=== PATIENT | female | born 1990 | race Caucasian/White ===

== ENCOUNTER 2017-01-10 21:39 | Emergency (ER) | payer MEDICAID ==
[2017-01-11] MEDS ORDERED: METOCLOPRAMIDE HCL INJ/PF 10 MG/2 ML SDV IV ONE (02:00)
[2017-01-11] MEDS ORDERED: MORPHINE SULFATE 10 MG/ML INJ IV ONE (02:00)
[2017-01-11 02:04] LABS: ABSOLUTE BASOPHILS # (AUTO) 0.1 10^3/uL (0.0-0.2); ABSOLUTE EOSINOPHILS # (AUTO) 0.1 10^3/uL (0.0-0.6); ABSOLUTE LYMPHOCYTES (AUTO) 3.4 10^3/uL (0.5-4.7); ABSOLUTE NEUT (AUTO) 10.4 10^3/uL (1.7-8.2); BASOPHILS % (AUTO) 0.5 % (0-2); EOSINOPHILS % (AUTO) 0.6 % (0-6); HEMATOCRIT 42.5 % (36.0-47.0); HEMOGLOBIN 13.7 g/dL (12.0-15.5); HGB HCT DIFFERENCE -1.4; LYMPHOCYTES % (AUTO) 22.6 % (13-45); MEAN CORPUSCULAR HEMOGLOBIN 26.2 pg (27.0-33.4); MEAN CORPUSCULAR HGB CONC 32.1 g/dL (32.0-36.0); MEAN CORPUSCULAR VOLUME 82 fl (80-97); MONOCYTES % (AUTO) 6.9 % (3-13); RED BLOOD COUNT 5.21 10^6/uL (3.72-5.28); RED CELL DISTRIBUTION WIDTH 15.1 % (11.5-14.0); SEGMENTED NEUTROPHILS % (AUTO) 69.4 % (42-78)
[2017-01-11 02:12] LABS: ALANINE AMINOTRANSFERASE 27 U/L (9-52); ALBUMIN 4.3 g/dL (3.5-5.0); ALKALINE PHOSPHATASE 79 U/L (38-126); ANION GAP 12 (5-19); ASPARTATE AMINO TRANSFERASE 20 U/L (14-36); BILIRUBIN,DIRECT 0.3 mg/dL (0.0-0.4); BILIRUBIN,TOTAL 0.4 mg/dL (0.2-1.3); BLOOD UREA NITROGEN 13 mg/dL (7-20); CALCIUM 9.9 mg/dL (8.4-10.2); CARBON DIOXIDE 22 mmol/L (22-30); CHLORIDE 105 mmol/L (98-107); CREATININE RESULT 0.65 mg/dL (0.52-1.25); GLUCOSE 87 mg/dL (75-110); POTASSIUM 4.3 mmol/L (3.6-5.0); SODIUM 139.1 mmol/L (137-145); TOTAL PROTEIN 8.2 g/dL (6.3-8.2)
[2017-01-11 02:20] LABS: APPEARANCE,URINE CLOUDY; BILIRUBIN,URINE NEGATIVE (NEGATIVE); GLUCOSE, URINE NEGATIVE (NEGATIVE); KETONES,URINE NEGATIVE (NEGATIVE); LEUKOCYTE ESTERASE,URINE NEGATIVE (NEGATIVE); NITRITE,URINE NEGATIVE (NEGATIVE); PROTEIN,URINE NEGATIVE (NEGATIVE); URINE SPECIFIC GRAVITY 1.015; UROBILINOGEN,URINE NEGATIVE mg/dL (<2.0)
--- NOTE | 2017-01-11 03:06 | RADIOLOGY REPORT (SQ) ---
EXAM DESCRIPTION: U/S RETROPERITON (RENAL/AORTA) COMPLETED DATE/TIME: 01/11/2017 2:47 am REASON FOR STUDY: right back pain. Hx of kidney stone COMPARISON: None. TECHNIQUE: Dynamic and static grayscale images acquired of the kidneys and bladder and recorded on P ACS. Additional selected color Doppler and spectral images recorded. LIMITATIONS: None. FINDINGS: RIGHT KIDNEY: 9.4 cm. Normal size. Normal echogenicity. No solid or suspicious masses. No hydronephrosis. No calcifications. LEFT KIDNEY: 10.4 cm. Normal size. Normal echogenicity. No solid or suspicious masses. No hydroneph rosis. No calcifications. BLADDER: No masses. OTHER FINDINGS: No other significant finding. IMPRESSION: NORMAL RENAL AND BLADDER ULTRASOUND. TECHNICAL DOCUMENTATION: JOB ID: [id number] [employer]- All Rights Reserved
--- NOTE | 2017-01-11 04:19 | ER Document Report ---
ED General - General Chief Complaint: Possible Kidney Stone Stated Complaint: BACK PAIN Time Seen by Provider: 01/11/17 01:56 Notes: Patient is a 26-year-old female presents with complaint of right low back pain. She has no flank or anterior abdominal pain. No dysuria. No blood in her urine. She says this feels similar to when she had a kidney stone several months ago. She did not need any procedures to pass the stone. She passed it on her own. She has had no abnormal vaginal discharge. She did have a positive test proximal 4 weeks ago did have some vaginal bleeding at that time. She was told she was having a threatened miscarriage. Does not recheck a test since. Ultrasound at that time did not show any . TRAVEL OUTSIDE OF THE [place] IN LAST 30 DAYS: No Past Medical History - Social History Smoking Status: Unknown if Ever Smoked Frequency of alcohol use: None Drug Abuse: None Family History: Reviewed & Not Pertinent Renal/ Medical History: Reports: Hx Kidney Stones - RIGHT KIDNEY. Denies: Hx Peritoneal Dialysis Surgical Hx: Negative Review of Systems - Review of Systems Notes: My Normal Review Basic REVIEW OF SYSTEMS: CONSTITUTIONAL : Denies fever, chills, or sweats. Denies recent illness. EENT: Denies eye, ear, throat, or mouth pain or symptoms. Denies nasal or sinus congestion. CARDIOVASCULAR: Denies chest pain. RESPIRATORY: Denies cough, cold, or chest congestion. Denies shortness of breath, difficulty breathing, or wheezing. GASTROINTESTINAL: Denies abdominal pain. Denies nausea, vomiting, or diarrhea. GENITOURINARY: Denies difficulty urinating, painful urination, burning, frequency, or blood in urine. FEMALE GENITOURINARY: Denies vaginal bleeding, abnormal or irregular periods. MUSCULOSKELETAL: Right back pain. SKIN: Denies rash or skin lesions. NEUROLOGICAL: Denies altered mental status or loss of consciousness. Denies headache. Denies weakness or paralysis or loss of use of either side. Denies problems with gait or speech. Denies sensory or motor loss. ALL OTHER SYSTEMS REVIEWED AND NEGATIVE. Physical Exam - Vital signs Vitals: Temp Pulse Resp BP Pulse Ox 98.3 F 111 H 16 151/93 H 99 01/10/17 22:32 01/10/17 22:32 01/10/17 22:32 01/10/17 22:32 01/10/17 22:32 - Notes Notes: General Appearance: Well nourished, alert, cooperative, no acute distress, mild obvious discomfort. Vitals: reviewed, See vital signs table. Head: no swelling or tenderness to the head Eyes: PERRL, EOMI, Conjuctiva clear Mouth: No decreasd moisture Lungs: No wheezing, No rales, No rhonci, No accessory muscle use, good air exchange bilaterally. Heart: Normal rate, Regular rythm, No murmur, no rub Abdomen: Normal BS, soft, No rigidity, No reproducible abdominal tenderness to palpation, No guarding, no rebound, no abdominal masses, no organomegaly Back: Some pain to palpation over right lower back. Extremities: strength 5/5 in all extremities, good pulses in all extremities, no swelling or tenderness in the extremities, no edema. Skin: warm, dry, appropriate color, no rash Neuro: speech clear, oriented x 3, normal affect, responds appropriately to questions. Course - Vital Signs Vital signs: Temp Pulse Resp BP Pulse Ox 98.0 F 94 18 128/84 H 98 01/11/17 01:49 01/11/17 01:49 01/11/17 01:49 01/11/17 01:49 01/11/17 01:49 - Laboratory Result Diagrams: 01/11/17 01:42 01/11/17 01:42 Laboratory results interpreted by me: 01/11/17 01:42 WBC 15.0 H MCH 26.2 L RDW 15.1 H Plt Count 462 H Absolute Neutrophils 10.4 H - Transfer of Care Notes: Patient's urinalysis shows no blood or infection. Her renal ultrasound was negative. Her hCG level actually came back negative. Suspect she probably had a miscarriage when she was bleeding 4 weeks ago. She only has pain over the back itself. She does have a mild leukocytosis; however, I do not suspect appendicitis as she has no anterior abdominal tenderness to palpation. She looks and feels improved. I will discharge her home but I strongly encourage her to return to ER if she has recurrent, worsening pain, fevers, vomiting, or she feels unwell. Patient agrees with plan will be discharged home. Dictation of this chart was performed using voice recognition software; therefore, there may be some unintended grammatical errors. 01/11/17 04:19 Discharge - Discharge Clinical Impression: Back pain Qualifiers: Back pain location: low back pain Chronicity: acute Back pain laterality: right Sciatica presence: without sciatica Qualified Code(s): M54.5 - Low back pain Condition: Good Disposition: HOME, SELF-CARE Additional Instructions: Please return to the ER immediately if you have worsening back pain, fever,s pain with urination, blood in your urine, or any abdominal pain. Please follow up with your doctor in 2 days for close reevaluation. No heavy lifting. Forms: Return to Work
[2017-01-11 04:23] VITALS: BP 128/75
== END 2017-01-11 04:23 | disposition home or self-care (01) ==
LOC: ER 21:39
DX: M54.5 Low back pain (principal); Z87.442 Personal history of urinary calculi; D72.829 Elevated white blood cell count, unspecified; Z32.02 Encounter for pregnancy test, result negative
CPT/HCPCS: 99284; 36415; 84702; 85025; 81025; 80053; 81001; 76770; J2765; J2270

== ENCOUNTER → 2018-08-01 | Outpatient (CLI) | payer SELFPAY ==
--- NOTE | 2018-08-01 15:47 | RADIOLOGY REPORT (SQ) ---
EXAM DESCRIPTION: U/S [id number] TRNABD 1GES W/ODOP COMPLETED DATE/TIME: 08/01/2018 3:12 pm REASON FOR STUDY: ENCTR FOR SUPERVISION OF OTHER NORMAL , 1ST TRIMESTER (Z34.81) Z34.81 EN COUNTER FOR SUPRVSN OF NORMAL , FIRST TRIM COMPARISON: None. TECHNIQUE: Transvaginal and transabdominal static and realtime grayscale images acquired of the pelv is. Additional selected spectral and color Doppler images recorded. All images stored on PACs. bHCG: Not applicable. CLINICAL DATES: LMP 05/05/2018 LIMITATIONS: None. FINDINGS: FETUS: Twin Living intrauterine . ULTRASOUND EGA: 12 weeks 1 day ; 11 weeks 4 days. ULTRASOUND GENEVA: 02/12/2019 EFW: Not applicable less than 20 weeks. CRL: 5.68 cm ; 4.83 Cm FHR: 158; 171 beats per minute. SURVEY: No visualized anomalies. AMNIOTIC FLUID: Adequate amount. PLACENTA: Not yet developed due to early gestation. SUBCHORIONIC BLEED: No SIZE OF BLEED: Not applicable. UTERUS: No masses. No anomalies. CERVICAL LENGTH: 3.1 cm. Closed. RIGHT ADNEXA: Ovary not seen. No adnexal free fluid. No adnexal masses. LEFT ADNEXA: Ovary not seen. No adnexal free fluid. No adnexal masses. FREE FLUID: None. OTHER: No other significant finding. IMPRESSION: Living twin intrauterine gestation 12 weeks 1 day. Trimester of : First - 0 to 13 weeks. TECHNICAL DOCUMENTATION: JOB ID: [id number] [employer]- All Rights Reserved Reading location - IP/workstation name: [email or web address]
== END ==
LOC: RAD 14:12
PROVIDERS: ATTEND Nurse Practitioner
DX: O30.001 Twin pregnancy, unspecified number of placenta and unspecified number of amniotic sacs, first trimester (principal); Z3A.12 12 weeks gestation of pregnancy
CPT/HCPCS: 76801

== ENCOUNTER 2018-12-23 09:29 | Outpatient (CLI) | payer MEDICAID ==
--- NOTE | 2018-12-23 12:11 | Non Stress Test Report ---
Non Stress Test Datetime Report Generated by CPN: 12/23/2018 12:10 DEMOGRAPHIC EGA NST: 32.5 INDICATION Indication for Study: Ordered by Provider MONITORING Monitor Explained: Monitor Explained; Test Explained; Patient Verbalized Understanding Time on Monitor: 12/23/2018 09:48 Time off Monitor: 12/23/2018 10:52 NST Duration: 64 NST INTERVENTIONS NST Interventions: For Biophysical Profile; Other Physician Notified NST: J. Rivas, CNM BABY A: [id number] BABY A Movement : Present Contraction Frequency : none FHR Baseline : 135 Accelerations : 15X15 Decelerations : None Variability : Moderate 6-25bpm NST Review: Meets Criteria for Reactive NST NST Review and Verified By : ERNESTINE Wilkinson Results: Non-Reactive BABY B Movement: Present FHR Baseline: 140 Accelerations: 15X15 Decelerations: None Variability: Moderate 6-25bpm NST Review: Does Not Meet Criteria for Reactive NST NST Reviewed And Verified By: Génesis Shane RN NST Results: Non-Reactive NST REPORT Report Trigger: Send Report
--- NOTE | 2018-12-23 12:20 | RADIOLOGY REPORT (SQ) ---
EXAM DESCRIPTION: U/S PROFILE W/O STRESS; U/S [id number] + EACH ADDIT GEST COMPLETED DATE/TIME: 12/23/2018 11:54 am REASON FOR STUDY: BPP; TWINS BPP COMPARISON: None. TECHNIQUE: Limited zheng-scale realtime and static images of the fetus to measure specified parameter s. LIMITATIONS: None. FINDINGS: BABY A: HEART RATE: 147 beats per minute. TERRA: 9.0 cm. BREATHING MOVEMENT: 2 points. MOVEMENT: 2 points. POSTURE AND TONE: 2 points. QUALITATIVE TERRA: 2 points. BABY B: HEART RATE: 137 beats per minute. TERRA: 12.9 cm. BREATHING MOVEMENT: 2 points. MOVEMENT: 2 points. POSTURE AND TONE: 2 points. QUALITATIVE TERRA: 2 points. OTHER: Baby A vertex. Baby B breech. IMPRESSION: BIOPHYSICAL PROFILE: 03/02. Trimester of : Third - 28 weeks to delivery COMMENT: BREATHING MOVEMENTS: 2 POINTS: PRESENT 0 POINTS: ABSENT MOTION: 2 POINTS: PRESENT 0 POINTS: ABSENT TONE: 2 POINTS: PRESENT 0 POINTS: ABSENT AMNIOTIC FLUID VOLUME: 2 POINTS: LARGEST POCKET GREATER THAN 2 CM DEPTH. 0 POINTS: NO POCKET OF 2 CM. TECHNICAL DOCUMENTATION: JOB ID: [id number] [employer]- All Rights Reserved Reading location - IP/workstation name: [email or web address]
--- NOTE | 2018-12-23 12:20 | RADIOLOGY REPORT (SQ) ---
EXAM DESCRIPTION: U/S PROFILE W/O STRESS; U/S 71651 + EACH ADDIT GEST COMPLETED DATE/TIME: 12/23/2018 11:54 am REASON FOR STUDY: BPP; TWINS BPP COMPARISON: None. TECHNIQUE: Limited zheng-scale realtime and static images of the fetus to measure specified parameter s. LIMITATIONS: None. FINDINGS: BABY A: HEART RATE: 147 beats per minute. TERRA: 9.0 cm. BREATHING MOVEMENT: 2 points. MOVEMENT: 2 points. POSTURE AND TONE: 2 points. QUALITATIVE TERRA: 2 points. BABY B: HEART RATE: 137 beats per minute. TERRA: 12.9 cm. BREATHING MOVEMENT: 2 points. MOVEMENT: 2 points. POSTURE AND TONE: 2 points. QUALITATIVE TERRA: 2 points. OTHER: Baby A vertex. Baby B breech. IMPRESSION: BIOPHYSICAL PROFILE: 03/02. Trimester of : Third - 28 weeks to delivery COMMENT: BREATHING MOVEMENTS: 2 POINTS: PRESENT 0 POINTS: ABSENT MOTION: 2 POINTS: PRESENT 0 POINTS: ABSENT TONE: 2 POINTS: PRESENT 0 POINTS: ABSENT AMNIOTIC FLUID VOLUME: 2 POINTS: LARGEST POCKET GREATER THAN 2 CM DEPTH. 0 POINTS: NO POCKET OF 2 CM. TECHNICAL DOCUMENTATION: JOB ID: [id number] [employer]- All Rights Reserved Reading location - IP/workstation name: [email or web address]
== END 2018-12-23 11:59 | disposition home or self-care (01) ==
LOC: LC 09:29
PROVIDERS: ATTEND Obstetrics & Gynecology
PROC: 4A1HXCZ Monitoring of Products of Conception, Cardiac Rate, External Approach (ICD-10-PCS; principal; 2018-12-23)
DX: O30.003 Twin pregnancy, unspecified number of placenta and unspecified number of amniotic sacs, third trimester (principal); Z3A.32 32 weeks gestation of pregnancy
CPT/HCPCS: 59025; 76802; 76819

== ENCOUNTER 2019-01-14 23:31 | Outpatient (CLI) | payer MEDICAID ==
[2019-01-15 00:50] LABS: APPEARANCE,URINE SLIGHTLY-CLOUDY; BILIRUBIN,URINE NEGATIVE (NEGATIVE); COLOR,URINE YELLOW; GLUCOSE, URINE NEGATIVE (NEGATIVE); KETONES,URINE NEGATIVE (NEGATIVE); LEUKOCYTE ESTERASE,URINE NEGATIVE (NEGATIVE); NITRITE,URINE NEGATIVE (NEGATIVE); PROTEIN,URINE 30 mg/dL (NEGATIVE); URINE SPECIFIC GRAVITY 1.026; UROBILINOGEN,URINE NEGATIVE mg/dL (<2.0)
[2019-01-15 01:10] LABS: URINE AMPHETAMINES SCREEN NEGATIVE; URINE BARBITURATES SCREEN NEGATIVE; URINE BENZODIAZEPINES SCREEN NEGATIVE; URINE COCAINE SCREEN NEGATIVE; URINE MARIJUANA (THC) SCREEN NEGATIVE; URINE METHADONE SCREEN NEGATIVE; URINE PHENCYCLIDINE SCREEN NEGATIVE
--- NOTE | 2019-01-15 01:59 | Non Stress Test Report ---
Non Stress Test Datetime Report Generated by CPN: 01/15/2019 01:59 DEMOGRAPHIC EGA NST: 36.0 INDICATION Indication for Study: Multiple Gestation; Ordered by Provider MONITORING Monitor Explained: Monitor Explained; Test Explained; Patient Verbalized Understanding Time on Monitor: 01/15/2019 00:08 Time off Monitor: 01/15/2019 01:50 NST Duration: 102 NST INTERVENTIONS NST Interventions: PO Hydration Physician Notified NST: Dr. Anthony BABY A: [id number] BABY A Movement : Present Contraction Frequency : Occasional FHR Baseline : 145 Accelerations : 15X15 Decelerations : None Variability : Moderate 6-25bpm NST Review: Meets Criteria for Reactive NST NST Review and Verified By : Mejia Valdez RN NST Results: Reactive BABY B Movement: Present FHR Baseline: 140 Accelerations: 15X15 Decelerations: None Variability: Moderate 6-25bpm NST Review: Meets Criteria for Reactive NST NST Reviewed And Verified By: KDereje José Miguel, RN NST Results: Reactive NST REPORT Report Trigger: Send Report
== END 2019-01-15 01:57 | disposition home or self-care (01) ==
LOC: LC 23:31
PROVIDERS: ATTEND Obstetrics & Gynecology
PROC: 4A1HXCZ Monitoring of Products of Conception, Cardiac Rate, External Approach (ICD-10-PCS; principal; 2019-01-14)
DX: O36.8130 Decreased fetal movements, third trimester, not applicable or unspecified (principal); O47.03 False labor before 37 completed weeks of gestation, third trimester; Z3A.36 36 weeks gestation of pregnancy
CPT/HCPCS: 59025; 80307; 81001; 94760

== ENCOUNTER 2019-01-16 06:29 | Inpatient (IN) | payer MEDICAID ==
[2019-01-13 11:25] LABS: ABSOLUTE LYMPHOCYTES (AUTO) 1.6 10^3/uL (0.5-4.7); ABSOLUTE MONOCYTES (AUTO) 0.8 10^3/uL (0.1-1.4); BASOPHILS % (AUTO) 0.2 % (0-2); EOSINOPHILS % (AUTO) 0.3 % (0-6); HEMATOCRIT 32.6 % (36.0-47.0); HEMOGLOBIN 10.7 g/dL (12.0-15.5); LYMPHOCYTES % (AUTO) 19.1 % (13-45); MEAN CORPUSCULAR HGB CONC 32.7 g/dL (32.0-36.0); MEAN CORPUSCULAR VOLUME 73 fl (80-97); MONOCYTES % (AUTO) 9.7 % (3-13); PLATELET COUNT 307 10^3/uL (150-450); RED BLOOD COUNT 4.45 10^6/uL (3.72-5.28); SEGMENTED NEUTROPHILS % (AUTO) 70.7 % (42-78); TOTAL CELLS COUNTED % (AUTO) 100 %; WHITE BLOOD COUNT 8.5 10^3/uL (4.0-10.5)
[2019-01-13 11:33] LABS: APPEARANCE,URINE SLIGHTLY-CLOUDY; BILIRUBIN,URINE NEGATIVE (NEGATIVE); COLOR,URINE YELLOW; GLUCOSE, URINE NEGATIVE (NEGATIVE); KETONES,URINE NEGATIVE (NEGATIVE); LEUKOCYTE ESTERASE,URINE NEGATIVE (NEGATIVE); NITRITE,URINE NEGATIVE (NEGATIVE); PROTEIN,URINE NEGATIVE (NEGATIVE); URINE SPECIFIC GRAVITY 1.018; UROBILINOGEN,URINE NEGATIVE mg/dL (<2.0)
[2019-01-13 11:57] LABS: URINE AMPHETAMINES SCREEN NEGATIVE; URINE BARBITURATES SCREEN NEGATIVE; URINE BENZODIAZEPINES SCREEN NEGATIVE; URINE COCAINE SCREEN NEGATIVE; URINE MARIJUANA (THC) SCREEN NEGATIVE; URINE METHADONE SCREEN NEGATIVE; URINE PHENCYCLIDINE SCREEN NEGATIVE
[~2019-01-16 06:29] MED LIST: CEFAZOLIN 2 GM/D5W RTU 2 GM/50 ML RTUPB IV PRN; LACTATED RINGERS 1000 ML IV PRN; LIDOCAINE 0.5% INJ-PF (5 MG/ML) 50 ML SDV SUBCUT PRN; RINGERS SOLUTION,LACTATED 1,500 ML IV PRN
[2019-01-16] MEDS ORDERED: OXYTOCIN 10 UNIT/ML VIAL ONE (09:10)
[2019-01-16] MEDS ORDERED: OXYTOCIN/NORMAL SALINE 20 UNIT/1,000 ML RTUINJ ONE ×2 (09:10→10:44)
[2019-01-16] MEDS ORDERED: EPHEDRINE SULFATE INJ 50 MG/1 ML AMPULE ONE (09:10)
[2019-01-16] MEDS ORDERED: MIDAZOLAM 2 MG/2 ML INJ ONE (09:10)
[2019-01-16] MEDS ORDERED: ONDANSETRON HCL INJ/PF 4 MG/2 ML SDV ONE (09:10)
[2019-01-16] MEDS ORDERED: FENTANYL CITRATE INJ/PF 100 MCG/2 ML AMPUL ONE (09:10)
[2019-01-16] MEDS ORDERED: KETOROLAC TROMETHAMINE INJ/PF 30 MG/1 ML SDV ONE (09:10)
[2019-01-16] MEDS ORDERED: ACETAMINOPHEN 1,000 MG/100 ML RTUPB IV ONE (09:10)
[2019-01-16] MEDS ORDERED: METHYLERGONOVINE MALEATE INJ/PF 0.2 MG/1 ML AMPULE ONE (10:02)
[2019-01-16] MEDS ORDERED: PROMETHAZINE HCL INJ 25 MG/1 ML VIAL IV PRN ×3 (10:09→11:01)
[2019-01-16] MEDS ORDERED: FENTANYL CITRATE INJ/PF 100 MCG/2 ML AMPUL IV PRN ×3 (10:09)
[2019-01-16] MEDS ORDERED: ONDANSETRON HCL INJ/PF 4 MG/2 ML SDV IV PRN (10:09)
[2019-01-16] MEDS ORDERED: MEPERIDINE HCL/PF INJ 25 MG/1 ML DISP.SYRIN IV PRN (10:09)
[2019-01-16] MEDS ORDERED: OXYCODONE-ACETAMINOPHEN 5-325 MG TABLET PO PRN ×3 (10:09→11:01)
[2019-01-16] MEDS ORDERED: DIPHENHYDRAMINE HCL 50 MG/ML VIAL IV PRN (10:09)
--- NOTE | 2019-01-16 10:49 | PDOC DELIVERY SUMMARY ---
Delivery Summary - Maternal Hx : II Hx Para: 0 Hx # Term Pregnancies: 0 Hx Total # of Abortions (Sponateous & Elective): 1 GENEVA: 02/12/19 Gestational Age: 36.1 Ruptured Membranes: AROM Time of Rupture: 09:55 Fluids: Clear - Delivery Presentation: Vertex Heart Rate Monitoring: Done Pre-Operatively Support Person Present: Yes Location: OR : Scheduled, Primary Placenta: Within Normal Limits Number of Vessels (Cord): 3 Nuchal Cord: No Delivery of Placenta Date: 01/16/19 Delivery of Placenta Time: 10:00 Estimated Blood Loss: 600 ml Delivery Quantitative Blood Loss (QBL): 510 - Medications Type of Anesthesia:: Spinal - Infant Assess and Care Baby 1 Female Delivery of Date: 01/16/19 Delivery of Time: 09:57 Preprinted Number On Band: [id number] Skin to Skin: Yes Skin to Skin (Mins): 5 To Nursery At: 10:13 Mode of Transport: Bassinet Baby 2 Male Delivery of Infant Date: 01/16/19 Delivery of Infant Time: 09:58 Preprinted Number On Band: [id number] Infant Skin to Skin: Yes Skin to Skin (Mins): 5 To Nursery At: 10:13 Mode of Transport: Bassinet - Delivery Personnel Transplant Nurse Practitioner: CESAR VIGIL RN: NITIN MILLER MD: DARBY GONZALES
[2019-01-16] MEDS ORDERED: RINGERS SOLUTION,LACTATED 1,000 ML IV PRN (11:01)
[2019-01-16] MEDS ORDERED: ACETAMINOPHEN 325 MG TABLET PO PRN (11:01)
[2019-01-16] MEDS ORDERED: OXYTOCIN/NORMAL SALINE 20 UNIT/1,000 ML RTUINJ IV PRN (11:01)
[2019-01-16] MEDS ORDERED: SIMETHICONE 80 MG TAB.CHEW PO PRN (11:01)
[2019-01-16] MEDS ORDERED: HYDROMORPHONE HCL INJ/PF 2 MG/ML AMPULE IV PRN (11:01)
--- NOTE | 2019-01-16 11:01 | Operative Report ---
Operative Report DATE OF SURGERY: 01/16/19 PREOPERATIVE DIAGNOSIS: 1. Intrauterine at 36-1/7 weeks. 2. Suspec alexey anomaly of twin B. 3. Polyhydramnios (twin B). 4. GBS negative. 5. Rh+. 6. rubella immune. 7. Anemia POSTOPERATIVE DIAGNOSIS: same OPERATION: Primary low transverse section SURGEON: DARBY HERRING ANESTHESIA: Spinal COMPLICATIONS: None ESTIMATED BLOOD LOSS: 600 ml INTRAOPERATIVE FINDINGS: Twin A: Viable female delivered at 0957 with a cephalic presentation; twin B: Viable male delivered at 0958 with a leonarda breech presentation; normal uterus, bilateral tubes and ovaries PROCEDURE: The patient was taken to the operating room where spinal anesthesia was obtained and found to be adequate. She was then prepped and draped in the normal sterile fashion and placed in the dorsal supine position with a leftward tilt. A Pfannenstiel skin incision was then made and carried through to the underlying layers of the fascia with the scalpel. The fascia was incised in the midline and the incision extended laterally with the Calabrese scissors. The superior aspect of the fascial incision was then grasped with Jairo clamps elevated and the underlying rectus muscles dissected off both bluntly and sharply. Attention was then turned to the inferior aspect of the fascial incision which in a similar fashion was grasped, tented up with Jairo clamps, and the rectus muscles dissected off both bluntly and sharply. The rectus muscles were then in the midline and the peritoneum was identified and entered both sharply and bluntly. The peritoneal incision was then extended superiorly and inferiorly with good visualization of the bladder. The bladder blade was inserted and the vesicouterine peritoneum identified grasped with Latvian pickups and entered sharply with the Metzenbaum scissors. This incision was then extended laterally with the Metzenbaum scissors and a bladder flap created digitally. The bladder blade was then reinserted and the lower uterine segment incised in a transverse fashion with the scalpel. The uterine incision was then extended bluntly and with the bandage scissors. The bladder blade was removed and A's head was delivered from cephalic presentation, atraumatically. The nose and mouth were suctioned and the cord doubly clamped and cut. The infant was handed off to waiting pediatricians. Next, B's amniotic sac was ruptured, which was polyhydramnios, the infant was in a leonarda breech position. The lower extremities were delivered, following the body and head, all atraumatically. The cord was clamped and cut. The infant was nose mouth were suctioned and the was handed off to the awaiting human resource analyst The placenta was then delivered manually and the uterus was not exteriorized. It was cleared of all clots and debris. The uterine incision was then repaired with 0 Vicryl in a running locked fashion. 0-Chromic was used to obtain hemostasis via imbrication of the initial layer. The bladder flap was then repaired with 3-0 Vicryl in a running fashion. Interceed was placed overlying the uterine incision, as well as a piece placed vertically on the anterior surface of the uterus, to prevent adhesions. The gutters were cleared of all clots and debris. All operative sites were noted to be hemostatic. The fascia was reapproximated with 0 Vicryl in a running fashion from each lateral edge to the midline. The subcutaneous fat layer was then closed in an interrupted fashion with 3-0 vicryl. The skin was closed with 4-0 Monocryl in a running, subcuticular fashion. The patient tolerated the procedure well. Sponge, lap, needle and instrument counts are correct x 2. 2 g of Ancef were given prior to skin incision. The patient was taken to the recovery area awake and in stable condition.
[2019-01-16] MEDS: FENTANYL CITRATE INJ/PF 100 MCG/2 ML AMPUL ONE ×2 (12:05→12:10)
[2019-01-16] MEDS: OXYCODONE-ACETAMINOPHEN 5-325 MG TABLET PO PRN ×2 (13:26→22:11)
[2019-01-16] MEDS: KETOROLAC TROMETHAMINE INJ/PF 30 MG/1 ML SDV IV SCH (17:36)
[2019-01-16] MEDS: DOCUSATE SODIUM 100 MG CAPSULE PO SCH (17:36)
[2019-01-17] MEDS: KETOROLAC TROMETHAMINE INJ/PF 30 MG/1 ML SDV IV SCH (02:36)
[2019-01-17 05:42] LABS: HEMATOCRIT 24.3 % (36.0-47.0); MEAN CORPUSCULAR HEMOGLOBIN 24.1 pg (27.0-33.4); MEAN CORPUSCULAR HGB CONC 32.4 g/dL (32.0-36.0); MEAN CORPUSCULAR VOLUME 74 fl (80-97); PLATELET COUNT 214 10^3/uL (150-450); RED BLOOD COUNT 3.27 10^6/uL (3.72-5.28); WHITE BLOOD COUNT 9.4 10^3/uL (4.0-10.5)
[2019-01-17 05:46] LABS: HEMOGLOBIN 7.9 g/dL (12.0-15.5)
[2019-01-17] MEDS ORDERED: IRON SUCROSE COMPLEX INJ/PF 100 MG/5 ML SDV IV ONE (09:00)
[2019-01-17] MEDS: DOCUSATE SODIUM 100 MG CAPSULE PO SCH ×2 (09:26→17:36)
[2019-01-17] MEDS: PRENATAL VITAMIN W DHA CAPSULE PO SCH (09:26)
[2019-01-17] MEDS: OXYCODONE-ACETAMINOPHEN 5-325 MG TABLET PO PRN ×2 (09:35→17:36)
--- NOTE | 2019-01-17 11:04 | PDOC PROGRESS REPORT ---
Subjective-OB Progress Note for:: 01/17/19 Subjective: 28yo G2 now P1L2 s/p primary ppd1. Pt. ambulating and voiding without difficulty. Just had venofer infusion, denies sob/lightheadedness or other concerns. Baby boy at [facility] awaiting surgery, baby girl in room with patient and doing well. No concerns at this time. Physical Exam (OB) Vital Signs: Temp Pulse Resp BP Pulse Ox 98.2 F 86 16 122/82 97 01/17/19 07:56 01/17/19 07:56 01/17/19 07:56 01/17/19 07:56 01/17/19 07:56 Intake & Output 01/16/19 01/17/19 01/18/19 06:59 06:59 06:59 Intake Total 5670 Output Total 3559 Balance 2111 - General General Appearance: Appears well In distress: None - PIH/Pre-Eclampsia Headache: Absent Epigastric Pain: No Visual Changes: No - Dressing Removed: No - opsite Incision: Well Approximated - Lochia Lochia Amount: Scant < 10 ml Lochia Color: Rubra/Red - Abdomen Description: Soft Hernia Present: No Fundal Description: Firm, Midline Fundal Height: u/u - u/2 - Respiratory Respiratory Status: No respiratory distress - Extremities Upper extremity: Normal inspection Lower extremities: Edema - Neurological Cognition: Normal Orientation: AAOx4 - Psychological Associated symptoms: Normal affect, Normal mood Objective-Diagnostic Laboratory: 01/17/19 05:26 01/17/19 05:26 WBC 9.4 RBC 3.27 L Hgb 7.9 L Hct 24.3 L MCV 74 L MCH 24.1 L MCHC 32.4 RDW 17.0 H Plt Count 214 Assessment and Plan(PN) - Assessment and Plan (1) Twin delivered Is this a current diagnosis for this admission?: Yes Plan: Routine pp care (2) Acute blood loss anemia Is this a current diagnosis for this admission?: Yes Plan: Continue to monitor for s/s of decompensation, increase dietary iron and FeSO4 BID. Will obtain h/h again prior to discharge (3) delivery delivered Is this a current diagnosis for this admission?: Yes Plan: Routine pp care. - Time Spent with Patient Time with patient: Less than 15 minutes - Disposition Anticipated Discharge: Home Within: within 24 hours
[2019-01-17] MEDS: IBUPROFEN 800 MG TABLET PO SCH ×2 (11:48→17:36)
[2019-01-18] MEDS: IBUPROFEN 800 MG TABLET PO SCH ×4 (00:13→17:08)
[2019-01-18] MEDS: OXYCODONE-ACETAMINOPHEN 5-325 MG TABLET PO PRN ×4 (00:13→17:08)
[2019-01-18] MEDS: DOCUSATE SODIUM 100 MG CAPSULE PO SCH ×2 (09:45→17:09)
[2019-01-18] MEDS: PRENATAL VITAMIN W DHA CAPSULE PO SCH (09:45)
--- NOTE | 2019-01-18 10:20 | PDOC PROGRESS REPORT ---
Subjective-OB Progress Note for:: 01/18/19 - POD #2, doing well, pumping, O negative. C/s due to twins, baby boy has a TEF and has been transferred to another facility. Physical Exam (OB) Vital Signs: Temp Pulse Resp BP Pulse Ox 98.5 F 88 16 127/71 H 99 01/18/19 08:14 01/18/19 08:14 01/18/19 08:14 01/18/19 08:14 01/18/19 08:14 Intake & Output 01/17/19 01/18/19 01/19/19 06:59 06:59 06:59 Intake Total 5670 2150 Output Total 3559 Balance 2110 2150 - General General Appearance: Appears well, Alert In distress: None - PIH/Pre-Eclampsia DTR's: 1 + Clonus: Negative Headache: Absent Epigastric Pain: No Visual Changes: No - Dressing Removed: No Incision: Dressing Closure Type: op site - Lochia Lochia Amount: Scant < 10 ml Lochia Color: Rubra/Red - Abdomen Description: Soft, Round Hernia Present: No Fundal Description: Firm, Midline Fundal Height: u/u - u/2 - Respiratory Respiratory Status: No respiratory distress - Abdominal Distension: No distension Tenderness: Nontender - Genitourinary Genitourinary Note: voiding - Extremities Upper extremity: Normal inspection Lower extremities: Edema - 1+ - Neurological Cognition: Normal Orientation: AAOx4 - Psychological Associated symptoms: Normal affect, Normal mood - Skin Skin Temperature: Warm Skin Moisture: Dry Objective-Diagnostic Laboratory: 01/17/19 05:26 Assessment and Plan(PN) - Assessment and Plan (1) Acute blood loss anemia Is this a current diagnosis for this admission?: Yes (2) delivery delivered Is this a current diagnosis for this admission?: Yes (3) Twin delivered Is this a current diagnosis for this admission?: Yes - Time Spent with Patient Time with patient: Less than 15 minutes Medications reviewed and adjusted accordingly: Yes - Disposition Anticipated Discharge: Home Within: within 24 hours
[2019-01-18] MEDS: FERROUS SULFATE 325 MG TABLET PO SCH (12:08)
[2019-01-19] MEDS: IBUPROFEN 800 MG TABLET PO SCH ×3 (00:16→14:49)
[2019-01-19] MEDS: OXYCODONE-ACETAMINOPHEN 5-325 MG TABLET PO PRN (00:36)
[2019-01-19 08:10] VITALS: BP 124/70
--- NOTE | 2019-01-19 08:57 | PDOC PROGRESS REPORT ---
Subjective-OB Progress Note for:: 01/19/19 Subjective: Ready for discharge. Anxious to see twin transferred to [place]. Physical Exam (OB) Vital Signs: Temp Pulse Resp BP Pulse Ox 98 F 84 18 124/70 100 01/19/19 08:05 01/19/19 08:05 01/19/19 08:05 01/19/19 08:05 01/19/19 08:05 Intake & Output 01/18/19 01/19/19 01/20/19 06:59 06:59 06:59 Intake Total 2150 750 Balance 2150 750 - PIH/Pre-Eclampsia DTR's: 1 + Clonus: Negative Headache: Absent Epigastric Pain: No Visual Changes: No - Dressing Removed: No - ptsite sith scant old shadow drainage on right side Incision: Dressing Closure Type: op site - Lochia Lochia Amount: Scant < 10 ml Lochia Color: Serosa/Brown - Abdomen Description: Soft, Round Hernia Present: No Bowel Sounds: Normoactive Flatus Presence: Present Stool: No Fundal Description: Firm, Midline Fundal Height: u/u - u/2 Objective-Diagnostic Laboratory: 01/17/19 05:26 Assessment and Plan(PN) - Time Spent with Patient Medications reviewed and adjusted accordingly: Yes - Disposition Anticipated Discharge: Home
--- NOTE | 2019-01-19 09:08 | PDOC DISCHARGE SUMMARY ---
Final Diagnosis Discharge Date: 01/19/19 Discharge Data - Discharge Medication Prescriptions: Oxycodone HCl/Acetaminophen [Percocet 5-325 mg Tablet] 1 tab PO Q4HP PRN #20 tablet PRN Reason: Ferrous Sulfate [Feosol 325 mg Tablet] 325 mg PO BID #60 tablet Ibuprofen [Motrin 800 mg Tablet] 800 mg PO Q6 #30 tablet Home Medications: Vits96/Iron Fum/Folic [ Tablet] 1 tab PO DAILY 12/23/18 Ferrous Sulfate [Feosol 325 mg Tablet] 325 mg PO BID #60 tablet 01/19/19 Ibuprofen [Motrin 800 mg Tablet] 800 mg PO Q6 #30 tablet 01/19/19 Oxycodone HCl/Acetaminophen [Percocet 5-325 mg Tablet] 1 tab PO Q4HP PRN #20 tablet 01/19/19 Gestational Age: 36.1 wks Reason(s) for Admission: Ceasarean Section-Primary Procedures: Ultrasound Intrapartum Procedure(s): : Low Cervical, Transverse - Data Baby 1 Female at 1 minute: 7 at 5 minutes: 9 Weight: 2410 kg Baby 2 Male at 1 minute: 6 at 5 minutes: 7 Weight: 1.729 kg Home with Mother: Yes Complications: Yes - Twin B transferred after - Diagnosis Test Laboratory: Temp Pulse Resp BP Pulse Ox 98 F 84 18 124/70 100 01/19/19 08:05 01/19/19 08:05 01/19/19 08:05 01/19/19 08:05 01/19/19 08:05 01/13/19 01/13/19 01/17/19 10:53 10:58 05:26 RBC 4.45 3.27 L Hgb 10.7 L 7.9 L Hct 32.6 L 24.3 L Urine Opiates Screen NEGATIVE - Discharge information/Instructions Discharge Activity: Activity As Tolerated, Balance Activity w/Rest, No Lifting Over 10 Pounds, No Lifting/Push/Pulling, Pelvic Rest, Slowly Increase Activity, No tub bath Discharge Diet: Regular Disposition: HOME, SELF-CARE Follow up with: [facility] in: 1, Weeks
[2019-01-19] MEDS: PRENATAL VITAMIN W DHA CAPSULE PO SCH (09:19)
[2019-01-19] MEDS: DOCUSATE SODIUM 100 MG CAPSULE PO SCH (09:19)
[2019-01-19] MEDS: FERROUS SULFATE 325 MG TABLET PO SCH (09:19)
[2019-01-19] MEDS ORDERED: DIPH/PERTUSS(ACELL)/TETANUS VAC/PF 0.5 ML SYR (>=10YO) IM PRN (13:30)
== END 2019-01-19 15:10 | disposition home or self-care (01) | DRG 787 ==
LOC: 2S 06:29
PROVIDERS: ADMIT Obstetrics & Gynecology; ATTEND Obstetrics & Gynecology
PROC: 10D00Z1 Extraction of Products of Conception, Low, Open Approach (ICD-10-PCS; principal; 2019-01-16 09:45)
DX: O30.043 Twin pregnancy, dichorionic/diamniotic, third trimester (principal); D62 Acute posthemorrhagic anemia; O35.9XX2 Maternal care for (suspected) fetal abnormality and damage, unspecified, fetus 2; O31.8X32 Other complications specific to multiple gestation, third trimester, fetus 2; O32.1XX2 Maternal care for breech presentation, fetus 2; O40.3XX2 Polyhydramnios, third trimester, fetus 2; O99.214 Obesity complicating childbirth; O99.02 Anemia complicating childbirth; Z3A.36 36 weeks gestation of pregnancy; Z37.2 Twins, both liveborn
CPT/HCPCS: 1961; 36415; 59025; 80307; 81001; 85025; 85027; 86850; 86900; 86901; 88307; 90715; 94799; C1765; J0131; J0690; J1756; J1885; J2210; J2250; J2405; J2590; J3010; J3490

== ENCOUNTER → 2020-02-20 | Outpatient (CLI) | payer MEDICAID ==
--- NOTE | 2020-02-20 15:34 | RADIOLOGY REPORT (SQ) ---
EXAM DESCRIPTION: U/S [id number] TRNABD 1GES W/ODOP IMAGES COMPLETED DATE/TIME: 02/20/2020 3:18 pm REASON FOR STUDY: Z34.81 ENCOUNTER FOR SUPRVSN OF NORMAL , FIRST TRIMESTER Z34.81 ENCOUNTE R FOR SUPRVSN OF NORMAL , FIRST TRIM COMPARISON: None. TECHNIQUE: Transabdominal static and realtime grayscale images acquired of the pelvis. Additional se lected spectral and color Doppler images recorded. All images stored on PACs. bHCG: Unknown CLINICAL DATES: LMP 12/01/2019 11 weeks 4 days LIMITATIONS: None. FINDINGS: FETUS: Single Living intrauterine . ULTRASOUND EGA: 13 weeks 0 days ULTRASOUND GENEVA: 08/27/2020 EFW: Not applicable less than 20 weeks. CRL: 6.9 cm. FHR: 163 beats per minute. SURVEY: Too early to assess. AMNIOTIC FLUID: Adequate amount. PLACENTA: Not yet developed due to early gestation. SUBCHORIONIC BLEED: And I will SIZE OF BLEED: Not applicable. UTERUS: No masses. No anomalies. CERVICAL LENGTH: 3.4 cm. Closed. RIGHT ADNEXA: Normal ovary with normal vascular flow. No adnexal free fluid. No adnexal masses. LEFT ADNEXA: Normal ovary with normal vascular flow. No adnexal free fluid. No adnexal masses. FREE FLUID: None. OTHER: No other significant finding. IMPRESSION: LIVING INTRAUTERINE . EGA 13 weeks 0 days Trimester of : First trimester - 0 to 13 weeks. TECHNICAL DOCUMENTATION: JOB ID: [id number] 2010 [employer]- All Rights Reserved rev Reading location - IP/workstation name: [email or web address]
== END ==
LOC: RAD 14:51
PROVIDERS: ATTEND Midwife
DX: Z34.81 Encounter for supervision of other normal pregnancy, first trimester (principal)
CPT/HCPCS: 76801

== ENCOUNTER 2020-08-06 11:43 | Outpatient (CLI) | payer MEDICAID ==
--- NOTE | 2020-08-06 12:16 | L&D Progress Notes ---
PROGRESS NOTES Datetime Report Generated by CPN: 08/06/2020 12:16 PROGRESS NOTE Comment: NST reactive, discharge home, F/U in office Thursday SIGNATURE SIGNATURE: [id number] Assignment: Sophie Browning MD Signature: with User ID: [email or web address] : with User ID: [email or web address]
--- NOTE | 2020-08-06 12:51 | Non Stress Test Report ---
Non Stress Test Datetime Report Generated by CPN: 08/06/2020 12:50 DEMOGRAPHIC Test Number: 1 Test Number: 1 EGA NST: 35.4 INDICATION Indication for Study (NST) Other: repeat NST nonreactive in office VITAL SIGNS Temperature - NST: 97.3 Pulse - NST: 105 RESP - NST: 18 NBPSYS NST: 105 NBPDIA NST: 69 MONITORING Monitor Explained: Monitor Explained; Patient Verbalized Understanding Time on Monitor: 08/06/2020 11:53 Time off Monitor: 08/06/2020 12:19 NST Duration: 26 NST INTERVENTIONS NST Interventions: PO Hydration; Reposition Patient BABY A: [id number] BABY A Movement : Present Contraction Frequency : 0 FHR Baseline : 145 Accelerations : 15X15 Decelerations : None Variability : Moderate 6-25bpm NST Review: Meets Criteria for Reactive NST NST Review and Verified By : Campos NST Results: Reactive NST REPORT Report Trigger: Send Report
== END 2020-08-06 12:21 | disposition home or self-care (01) ==
LOC: LC 11:43
PROVIDERS: ATTEND Obstetrics & Gynecology
DX: Z34.93 Encounter for supervision of normal pregnancy, unspecified, third trimester (principal)
CPT/HCPCS: 59025

== ENCOUNTER 2020-08-08 10:43 | Inpatient (IN) | payer MEDICAID ==
[2020-08-21] MEDS ORDERED: CEFAZOLIN 1 GM/D5W RTU 1 GM/50 ML RTUPB IV PRN (05:00)
[2020-08-21] MEDS ORDERED: RINGERS SOLUTION,LACTATED 1,000 ML IV ONE (08:00)
[2020-08-21 08:15] LABS: ABSOLUTE LYMPHOCYTES (AUTO) 1.6 10^3/uL (0.5-4.7); ABSOLUTE MONOCYTES (AUTO) 0.6 10^3/uL (0.1-1.4); ABSOLUTE NEUT (AUTO) 6.8 10^3/uL (1.7-8.2); BASOPHILS % (AUTO) 0.3 % (0-2); EOSINOPHILS % (AUTO) 0.3 % (0-6); HEMATOCRIT 35.2 % (36.0-47.0); HEMOGLOBIN 11.6 g/dL (12.0-15.5); LYMPHOCYTES % (AUTO) 17.3 % (13-45); MEAN CORPUSCULAR HGB CONC 33.1 g/dL (32.0-36.0); MEAN CORPUSCULAR VOLUME 82 fl (80-97); MONOCYTES % (AUTO) 6.7 % (3-13); PLATELET COUNT 278 10^3/uL (150-450); RED BLOOD COUNT 4.31 10^6/uL (3.72-5.28); RED CELL DISTRIBUTION WIDTH 18.9 % (11.5-14.0); SEGMENTED NEUTROPHILS % (AUTO) 75.4 % (42-78); TOTAL CELLS COUNTED % (AUTO) 100 %
[2020-08-21] MEDS: RINGERS SOLUTION,LACTATED 1,000 ML IV PRN ×2 (09:08→14:22)
[2020-08-21 09:15] LABS: URINE AMPHETAMINES SCREEN NEGATIVE; URINE BARBITURATES SCREEN NEGATIVE; URINE BENZODIAZEPINES SCREEN NEGATIVE; URINE COCAINE SCREEN NEGATIVE; URINE MARIJUANA (THC) SCREEN NEGATIVE; URINE METHADONE SCREEN NEGATIVE; URINE PHENCYCLIDINE SCREEN NEGATIVE
[2020-08-21] MEDS ORDERED: OXYTOCIN 10 UNIT/ML VIAL ONE (09:55)
[2020-08-21] MEDS ORDERED: OXYTOCIN/0.9 % SODIUM CHLORIDE 30 UNIT/500 ML RTUINJ ONE (09:55)
[2020-08-21] MEDS ORDERED: ACETAMINOPHEN 1,000 MG/100 ML RTUPB IV ONE (09:56)
[2020-08-21 10:35] LABS: APPEARANCE,URINE TURBID; BILIRUBIN,URINE NEGATIVE (NEGATIVE); GLUCOSE, URINE NEGATIVE (NEGATIVE); KETONES,URINE TRACE mg/dL (NEGATIVE); LEUKOCYTE ESTERASE,URINE MODERATE (NEGATIVE); NITRITE,URINE NEGATIVE (NEGATIVE); PROTEIN,URINE 30 mg/dL (NEGATIVE); URINE SPECIFIC GRAVITY 1.027; UROBILINOGEN,URINE NEGATIVE mg/dL (<2.0)
[2020-08-21 10:38] LABS: COLOR,URINE YELLOW
[2020-08-21] MEDS ORDERED: CITRIC ACID/SODIUM CITRATE ORAL SOLN 15 ML UDCUP ONE (10:39)
--- NOTE | 2020-08-21 10:46 | PDOC H&P ---
History of Present Illness Admission Date/PCP: 08/21/20 06:43 JOSEFINA ERDDY MD Patient complains of: Scheduled Repeat History of Present Illness: HECTOR SERRANO is a 30 year old female, at 39+ weeks EGA for repeat section. She reports feeling good today. Good movement, no loss of fluid or vaginal bleeding. No regular contractions. Prior CS x1 for twins Baby A breech) . History one SAB Declines TOLAC Past Medical History Cardiac Medical History: Denies: Hypertension Past Surgical History Past Surgical History: Reports: Section Social History Smoking Status: Never Smoker Family History Family History: Reviewed & Not Pertinent Parental Family History Reviewed: Yes Children Family History Reviewed: Yes Sibling(s) Family History Reviewed.: Yes Medication/Allergy Home Medications: Ascorbic Acid [Vitamin C] 1,000 mg PO DAILY 08/06/20 Ferrous Sulfate [Ferosul] 325 mg PO DAILY 08/06/20 Pnv 102/Iron/Folate 1/Dss/Dha [Vitafol Fe+ Docusate Combo Pck] 1 each PO DAILY 08/06/20 Allergies/Adverse Reactions: No Known Allergies Allergy (Verified 08/12/20 11:20) Review of Systems Constitutional: ABSENT: chills, fever(s), headache(s), weight gain, weight loss Cardiovascular: ABSENT: chest pain, dyspnea on exertion, edema, orthropnea, p alpitations Respiratory: ABSENT: cough, hemoptysis Gastrointestinal: ABSENT: abdominal pain, constipation, diarrhea, hematemesis, hematochezia, nausea, vomiting Genitourinary: ABSENT: dysuria, hematuria Integumentary: ABSENT: rash, wounds Neurological: ABSENT: abnormal gait, abnormal speech, confusion, dizziness, focal weakness, syncope Psychiatric: ABSENT: anxiety, depression, homidical ideation, suicidal ideation Physical Exam - Physical Exam Vital Signs: Temp Pulse Resp BP Pulse Ox 98.0 F 109 H 18 132/81 H 98 08/21/20 06:56 08/21/20 06:56 08/21/20 06:56 08/21/20 06:56 08/21/20 06:56 Intake & Output 08/20/20 08/21/20 08/22/20 06:59 06:59 06:59 Weight 102.965 kg General appearance: PRESENT: no acute distress, cooperative Respiratory exam: PRESENT: clear to auscultation mirta Cardiovascular exam: PRESENT: RRR, +S1, +S2 GI/Abdominal exam: PRESENT: normal bowel sounds, soft Neurological exam: PRESENT: alert, awake, oriented to person, oriented to place, oriented to time, oriented to situation, CN II-XII grossly intact. ABSENT: motor sensory deficit Psychiatric exam: PRESENT: appropriate affect, normal mood. ABSENT: homicidal ideation, suicidal ideation Result Laboratory Results: 08/21/20 08:03 08/21/20 08/21/20 08/21/20 08:03 08:03 08:26 WBC 9.0 RBC 4.31 Hgb 11.6 L Hct 35.2 L MCV 82 MCH 27.0 MCHC 33.1 RDW 18.9 H Plt Count 278 Seg Neutrophils % 75.4 Urine Color YELLOW Urine Appearance TURBID Urine pH 6.0 Ur Specific [place] 1.027 Urine Protein 30 H Urine Glucose (UA) NEGATIVE Urine Ketones TRACE H Urine Blood NEGATIVE Urine Nitrite NEGATIVE Ur Leukocyte Esterase MODERATE H Urine WBC (Auto) 19 Urine RBC (Auto) 1 Blood Type O NEGATIVE Antibody Screen NEGATIVE Assessment & Plan - Diagnosis (1) Previous section Is this a current diagnosis for this admission?: Yes (2) with 39 completed weeks gestation Is this a current diagnosis for this admission?: Yes - Time Critical Time spent with patient: 15-24 minutes Medications reviewed and adjusted accordingly: Yes Anticipated Discharge Disposition: Home, Self Care Anticipated Discharge Timeframe: within 72 hours - Inpatient Certification Based on my medical assessment, after consideration of the patient's comorbidities, presenting symptoms, or acuity I expect that the services needed warrant INPATIENT care.: Yes I certify that my determination is in accordance with my understanding of Medicare's requirements for reasonable and necessary INPATIENT services [42 CFR 412.3e].: Yes - Plan Summary Plan Summary: 30 yo at 39 weeks EGA for repeat section -Admit to LDR pre-op -NPO after midnight. IVFs: LR at 150cc/hr after 1 liter LR -Ancef 2 gms IV prior to OR -Abdominal prep -SCDs -Risks, benefits and alternatives discussed. Consent signed for section and blood products if needed -Plan for repeat section
[2020-08-21] MEDS ORDERED: CEFAZOLIN 1 GM/D5W RTU 1 GM/50 ML RTUPB IV ONE (11:01)
[2020-08-21] MEDS ORDERED: OXYCODONE-ACETAMINOPHEN 5-325 MG TABLET PO PRN (11:55)
[2020-08-21] MEDS ORDERED: SIMETHICONE 80 MG TAB.CHEW PO PRN (11:55)
[2020-08-21] MEDS ORDERED: RINGERS SOLUTION,LACTATED 1,000 ML IV PRN (11:55)
[2020-08-21] MEDS ORDERED: HYDROMORPHONE HCL INJ/PF 2 MG/ML AMPULE IV PRN (11:55)
[2020-08-21] MEDS ORDERED: ACETAMINOPHEN 325 MG TABLET PO PRN (11:55)
[2020-08-21] MEDS ORDERED: DIPH/PERTUSS(ACELL)/TETANUS VAC/PF 0.5 ML SYR (>=10YO) IM PRN (11:55)
[2020-08-21] MEDS ORDERED: MEASLES,MUMPS&RUBELLA VACC/PF 0.5 ML VIAL SUBCUT PRN (11:55)
[2020-08-21] MEDS ORDERED: OXYTOCIN/0.9 % SODIUM CHLORIDE 30 UNIT/500 ML RTUINJ IV PRN (11:55)
[2020-08-21] MEDS ORDERED: PROMETHAZINE HCL INJ 25 MG/1 ML VIAL IV PRN (11:55)
--- NOTE | 2020-08-21 12:06 | Operative Report ---
Operative Report DATE OF SURGERY: 08/21/20 PREOPERATIVE DIAGNOSIS: Previous section. Breech. at 39 + weeks IUP POSTOPERATIVE DIAGNOSIS: Same as above OPERATION: Repeat section SURGEON: JOSEFINA REDDY ANESTHESIA: Spinal TISSUE REMOVED OR ALTERED: Placenta COMPLICATIONS: none ESTIMATED BLOOD LOSS: 700 INTRAOPERATIVE FINDINGS: Uterus with three small fibroids less than 1 cm each and some decidual reaction on surface of uterus. Normal shape. Right fallopian tube normal and left fallopian tube with scarring -possible hx of infection??. Decidual reaction in mesosalpinx below left tube. both ovaries normal. Clear amniotic fluid. Viable female infant in double footling breech. PROCEDURE: IV fluids: per anesthesia record Urinary output: 175 cc Findings: as above Position: To recovery room in stable condition Description of procedure: The patient was taken to the operating room and spinal anesthesia was administered and found to be adequate. She was then placed on the OR table in the supine position with a slight leftward tilt. Patient was prepped and draped in usual sterile fashion. Ancef 2 gms was given IV prior to the procedure for infection prophylaxis. Timeout was taken. A Pfannenstiel skin incision was then made approximately 3 cm above the pubic symphysis and carried down to level the rectus fascia. The rectus fascia was then nicked in the midline with a scalpel and the fascial incision was extended laterally with use of curved Calabrese scisso rs. The rectus fascia was then grasped with 2 Kocker clamps elevated and the underlying rectus muscle was dissected off both bluntly and sharply. Scar tissue noted a-mild. Any bleeding controlled with cautery. The rectus muscles were then split in the midline and the peritoneum was entered. The peritoneal incision was then extended by manually stretching the peritoneum. The bladder blade was positioned. The bladder was noted to be out of harm's way. A scalpel was then used in the lower uterine for the hysterotomy, slowly until amniotomy was obtained a large amount of fluid was noted. The uterine incision was then manually stretched. The was noted to be in double footling breech postion. Both feet delivered and then the hips. Then trunk delivered to level of the scapula and each arm was reduced and delivered. The torso was elevated. The head then delivered with minimal difficulty. T The cord was cut clamped and the was handed off to the nurse awaiting. The placenta was manually delivered. Using a lap gauze the uterus was cleared of all clots and debris. . The uterus was then exteriorized and a bladder blade was repositioned. The uterine incision was then closed with 0 Chromic suture in a running locked fashion. A second layer of the same suture was used in a running locked imbricated fashion. The uterine incision was inspected and noted to be hemostatic. The posterior aspect of the uterus was then inspected and anatomy was seen as above. The uterus was returned to its normal anatomic position within the abdominal cavity. Warm saline irrigation was used to clear all clots and debris from the abdomen. The uterine incision was inspected once more and noted to remain hemostatic. The bladder blade was removed and the peritoneum was closed with 2-0 chromic in a running fashion. The rectus muscles were then reapproximated and the rectus fascia was closed with a #0 looped PDS in a running fashion. The subcutaneous tissue was then inspected and any bleeding was controlled with Bovie electrocautery. The subcutaneous tissue was then closed with 2-0 Plain Gut suture in a running fashion. The skin was then closed with 4-0 Monocryl in a running subcuticular fashion. The skin incision was then clean dried and Dermabond was applied over the skin incision. All instrument sponge and needle counts were correct x3 for the procedure the patient tolerated the procedure well. She will proceed to recovery room in stable condition
[2020-08-21] MEDS ORDERED: KETOROLAC TROMETHAMINE INJ/PF 30 MG/1 ML SDV IV SCH (14:00)
[2020-08-21] MEDS ORDERED: ONDANSETRON HCL INJ/PF 4 MG/2 ML SDV ONE (14:26)
[2020-08-21] MEDS ORDERED: KETOROLAC TROMETHAMINE 60 MG/2 ML SDV ONE (14:26)
[2020-08-21] MEDS ORDERED: PHENYLEPHRINE HCL INJ/PF 10 MG/1 ML SDV ONE (14:26)
[2020-08-21] MEDS: DOCUSATE SODIUM 100 MG CAPSULE PO SCH (17:17)
[2020-08-21] MEDS: KETOROLAC TROMETHAMINE INJ/PF 30 MG/1 ML SDV IV SCH (17:26)
[2020-08-21] MEDS: OXYCODONE-ACETAMINOPHEN 5-325 MG TABLET PO PRN ×2 (17:27→21:36)
[2020-08-22] MEDS: KETOROLAC TROMETHAMINE INJ/PF 30 MG/1 ML SDV IV SCH (01:31)
[2020-08-22 07:34] LABS: HEMOGLOBIN 11.6 g/dL (12.0-15.5); MEAN CORPUSCULAR HEMOGLOBIN 26.8 pg (27.0-33.4); MEAN CORPUSCULAR HGB CONC 32.2 g/dL (32.0-36.0); MEAN CORPUSCULAR VOLUME 83 fl (80-97); PLATELET COUNT 245 10^3/uL (150-450); RED BLOOD COUNT 4.33 10^6/uL (3.72-5.28); RED CELL DISTRIBUTION WIDTH 19.7 % (11.5-14.0); WHITE BLOOD COUNT 11.4 10^3/uL (4.0-10.5)
[2020-08-22] MEDS: OXYCODONE-ACETAMINOPHEN 5-325 MG TABLET PO PRN ×2 (08:07→13:05)
[2020-08-22] MEDS: PRENATAL VITAMIN W DHA CAPSULE PO SCH (09:52)
[2020-08-22] MEDS: DOCUSATE SODIUM 100 MG CAPSULE PO SCH ×2 (09:52→17:43)
--- NOTE | 2020-08-22 10:08 | PDOC PROGRESS REPORT ---
Subjective-OB Progress Note for:: 08/22/20 Subjective: Doing well, pain under control, , holding baby, + flatus, feeling gas, eating and voiding Physical Exam (OB) Vital Signs: Temp Pulse Resp BP Pulse Ox 98.1 F 94 17 109/69 97 08/22/20 07:33 08/22/20 07:33 08/22/20 07:33 08/22/20 07:33 08/22/20 07:33 Intake & Output 08/21/20 08/22/20 08/23/20 06:59 06:59 06:59 Intake Total 4854 Output Total 1300 Balance 3554 Weight 102.965 kg - PIH/Pre-Eclampsia Clonus: Negative Headache: Absent Epigastric Pain: No Visual Changes: No - Dressing Removed: No - surgiglue, open to air Incision: Well Approximated Closure Type: Surgical Glue - Maternal Morbidity 59. Maternal Morbidity (serious complications experinced by the mother associated with labor and delivery: None of the above - Lochia Lochia Amount: Small 10-25 ml Lochia Color: Rubra/Red - Abdomen Description: Soft, Round Hernia Present: No Fundal Description: Firm, Midline Fundal Height: u/u - u/2 Objective-Diagnostic Laboratory: 08/22/20 06:55 08/21/20 08/22/20 08:26 06:55 WBC 11.4 H RBC 4.33 Hgb 11.6 L Hct 36.0 MCV 83 MCH 26.8 L MCHC 32.2 RDW 19.7 H Plt Count 245 Urine Color YELLOW Urine Appearance TURBID Urine pH 6.0 Ur Specific [place] 1.027 Urine Protein 30 H Urine Glucose (UA) NEGATIVE Urine Ketones TRACE H Urine Blood NEGATIVE Urine Nitrite NEGATIVE Ur Leukocyte Esterase MODERATE H Urine WBC (Auto) 19 Urine RBC (Auto) 1 Assessment and Plan(PN) - Assessment and Plan (1) Previous section Is this a current diagnosis for this admission?: Yes (2) with 39 completed weeks gestation Is this a current diagnosis for this admission?: Yes (3) Acute blood loss anemia Is this a current diagnosis for this admission?: Yes (4) delivery delivered Is this a current diagnosis for this admission?: Yes - Time Spent with Patient Time with patient: Less than 15 minutes Medications reviewed and adjusted accordingly: Yes - Disposition Anticipated Discharge Disposition: Home, Self Care Anticipated Discharge Timeframe: within 24 hours
[2020-08-22] MEDS ORDERED: IBUPROFEN 800 MG TABLET PO SCH (14:00)
[2020-08-22] MEDS: IBUPROFEN 800 MG TABLET PO SCH (17:42)
[2020-08-23] MEDS: IBUPROFEN 800 MG TABLET PO SCH ×2 (01:01→09:41)
[2020-08-23] MEDS: OXYCODONE-ACETAMINOPHEN 5-325 MG TABLET PO PRN (07:59)
[2020-08-23] MEDS: PRENATAL VITAMIN W DHA CAPSULE PO SCH (09:40)
[2020-08-23] MEDS: DOCUSATE SODIUM 100 MG CAPSULE PO SCH (09:40)
--- NOTE | 2020-08-23 13:05 | PDOC DISCHARGE SUMMARY ---
Impression - Admit/DC Date/PCP Admission Date/Primary Care Provider: 08/21/20 06:43 JOSEFINA REDDY MD Discharge Date: 08/23/20 - Discharge Diagnosis (1) delivery indicated due to breech presentation Is this a current diagnosis for this admission?: Yes (2) with 39 completed weeks gestation Is this a current diagnosis for this admission?: Yes (3) Previous section Is this a current diagnosis for this admission?: Yes (4) S/P repeat low transverse Is this a current diagnosis for this admission?: Yes - Additional Information Discharge Diet: Regular Discharge Activity: Balance Activity w/Rest, No Lifting Over 10 Pounds, No Lifting/Push/Pulling, Pelvic Rest, No tub bath Referrals: JOSEFINA REDDY MD [Primary Care Provider] - Prescriptions: Ibuprofen [Motrin 800 mg Tablet] 800 mg PO Q8HP PRN #60 tablet PRN Reason: Oxycodone HCl/Acetaminophen [Percocet 5-325 mg Tablet] 1 tab PO Q4HP PRN #20 tablet PRN Reason: Home Medications: Pnv 102/Iron/Folate 1/Dss/Dha [Vitafol Fe+ Docusate Combo Pck] 1 each PO DAILY 08/06/20 Ibuprofen [Motrin 800 mg Tablet] 800 mg PO Q8HP PRN #60 tablet 08/23/20 Oxycodone HCl/Acetaminophen [Percocet 5-325 mg Tablet] 1 tab PO Q4HP PRN #20 tablet 08/23/20 Hospital Course 59. Maternal Morbidity (serious complications experinced by the mother associated with labor and delivery: None of the above Results Laboratory Results: WBC 11.4 10^3/uL (4.0-10.5) H 08/22/20 06:55 RBC 4.33 10^6/uL (3.72-5.28) 08/22/20 06:55 Hgb 11.6 g/dL (12.0-15.5) L 08/22/20 06:55 Hct 36.0 % (36.0-47.0) 08/22/20 06:55 MCV 83 fl (80-97) 08/22/20 06:55 MCH 26.8 pg (27.0-33.4) L 08/22/20 06:55 MCHC 32.2 g/dL (32.0-36.0) 08/22/20 06:55 RDW 19.7 % (11.5-14.0) H 08/22/20 06:55 Plt Count 245 10^3/uL (150-450) 08/22/20 06:55 Lymph % (Auto) 17.3 % (13-45) 08/21/20 08:03 [place] % (Auto) 6.7 % (3-13) 08/21/20 08:03 Eos % (Auto) 0.3 % (0-6) 08/21/20 08:03 Baso % (Auto) 0.3 % (0-2) 08/21/20 08:03 Absolute Neuts (auto) 6.8 10^3/uL (1.7-8.2) 08/21/20 08:03 Absolute Lymphs (auto) 1.6 10^3/uL (0.5-4.7) 08/21/20 08:03 Absolute Monos (auto) 0.6 10^3/uL (0.1-1.4) 08/21/20 08:03 Absolute Eos (auto) 0.0 10^3/uL (0.0-0.6) 08/21/20 08:03 Absolute Basos (auto) 0.0 10^3/uL (0.0-0.2) 08/21/20 08:03 Seg Neutrophils % 75.4 % (42-78) 08/21/20 08:03 Urine Color YELLOW 08/21/20 08:26 Urine Appearance TURBID 08/21/20 08:26 Urine pH 6.0 (5.0-9.0) 08/21/20 08:26 Ur Specific [place] 1.027 08/21/20 08:26 Urine Protein 30 mg/dL (NEGATIVE) H 08/21/20 08:26 Urine Glucose (UA) NEGATIVE mg/dL (NEGATIVE) 08/21/20 08:26 Urine Ketones TRACE mg/dL (NEGATIVE) H 08/21/20 08:26 Urine Blood NEGATIVE (NEGATIVE) 08/21/20 08:26 Urine Nitrite NEGATIVE (NEGATIVE) 08/21/20 08:26 Urine Bilirubin NEGATIVE (NEGATIVE) 08/21/20 08:26 Urine Urobilinogen NEGATIVE mg/dL (<2.0) 08/21/20 08:26 Ur Leukocyte Esterase MODERATE (NEGATIVE) H 08/21/20 08:26 Urine WBC (Auto) 19 /HPF 08/21/20 08:26 Urine RBC (Auto) 1 /HPF 08/21/20 08:26 Urine Bacteria (Auto) TRACE /HPF 08/21/20 08:26 Squamous Epi Cells Auto 35 /HPF 08/21/20 08:26 Urine Mucus (Auto) MOD /LPF 08/21/20 08:26 Urine Ascorbic Acid 40 (NEGATIVE) H 08/21/20 08:26 Urine Opiates Screen NEGATIVE 08/21/20 08:26 Urine Methadone Screen NEGATIVE 08/21/20 08:26 Ur Barbiturates Screen NEGATIVE 08/21/20 08:26 Ur Phencyclidine Scrn NEGATIVE 08/21/20 08:26 Ur Amphetamines Screen NEGATIVE 08/21/20 08:26 U Benzodiazepines Scrn NEGATIVE 08/21/20 08:26 Urine Cocaine Screen NEGATIVE 08/21/20 08:26 U Marijuana (THC) Screen NEGATIVE 08/21/20 08:26 COVID-19 Source See comment 08/19/20 11:24 COVID-19 (AMARI) Not Detected (Not Detect) 08/19/20 11:24 Influenza A (RT-PCR) NEGATIVE (NEGATIVE) 08/21/20 08:50 Influenza B (RT-PCR) NEGATIVE (NEGATIVE) 08/21/20 08:50 RSV (RT-PCR) NEGATIVE (NEGATIVE) 08/21/20 08:50 SARS-CoV-2 Rap RNA(RT-PCR) NEGATIVE (NEGATIVE) 08/21/20 08:50 Blood Type O NEGATIVE 08/21/20 08:03 Antibody Screen NEGATIVE 08/21/20 08:03 Plan Plan of Treatment: follow up in one week at [facility] for incision check
[2020-08-23 13:21] VITALS: BP 112/67
== END 2020-08-23 14:51 | disposition home or self-care (01) | DRG 788 ==
LOC: 2S 08-21 06:43
PROVIDERS: ADMIT Obstetrics & Gynecology; ATTEND Obstetrics & Gynecology
PROC: 10D00Z1 Extraction of Products of Conception, Low, Open Approach (ICD-10-PCS; principal; 2020-08-21)
DX: O32.8XX0 Maternal care for other malpresentation of fetus, not applicable or unspecified (principal); O34.211 Maternal care for low transverse scar from previous cesarean delivery; O34.13 Maternal care for benign tumor of corpus uteri, third trimester; D25.9 Leiomyoma of uterus, unspecified; Z37.0 Single live birth; Z3A.39 39 weeks gestation of pregnancy; Z20.822 Contact with and (suspected) exposure to COVID-19; O99.02 Anemia complicating childbirth; D64.9 Anemia, unspecified
CPT/HCPCS: 1961; 36415; 59025; 80307; 81001; 85025; 85027; 86850; 86900; 86901; 87635; 94760; 94799; 0241U; C9803; J0131; J0690; J1170; J1885; J2370; J2405; J2590; J3490; J7120

== ENCOUNTER 2020-08-12 11:01 | Outpatient (CLI) | payer MEDICAID ==
--- NOTE | 2020-08-12 12:06 | Non Stress Test Report ---
Non Stress Test Datetime Report Generated by CPN: 08/12/2020 12:06 DEMOGRAPHIC EGA NST: 36.3 INDICATION Indication for Study (NST) Other: IUP >32 weeks, sent from office VITAL SIGNS Temperature - NST: 97.3 Pulse - NST: 104 RESP - NST: 18 NBPSYS NST: 106 NBPDIA NST: 64 MONITORING Monitor Explained: Monitor Explained; Test Explained; Patient Verbalized Understanding; Other Time on Monitor: 08/12/2020 11:11 Time off Monitor: 08/12/2020 12:04 NST Duration: 53 NST INTERVENTIONS NST Interventions: PO Hydration Physician Notified NST: Sally Rivas CNM BABY A Movement : Present Contraction Frequency : occasional FHR Baseline : 145 Accelerations : 15X15 Decelerations : None Variability : Moderate 6-25bpm NST Review: Meets Criteria for Reactive NST NST Review and Verified By : Giovana Pardo RNC NST Results: Reactive NST REPORT Report Trigger: Send Report
== END 2020-08-12 12:02 | disposition home or self-care (01) ==
LOC: LC 11:01
PROVIDERS: ATTEND Obstetrics & Gynecology
DX: Z34.83 Encounter for supervision of other normal pregnancy, third trimester (principal); Z3A.36 36 weeks gestation of pregnancy
CPT/HCPCS: 59025